=== PATIENT | female | born 2000 | race African-American/Black ===

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

== ENCOUNTER → 2020-07-28 | Outpatient (CLI) | payer BC ==
[~2020-07-28] MED LIST: IBUPROFEN800 MG PO; NAPROSYN500 MG PO; NORCO 5-325 TA1 EACH PO; PROVENTIL HFA6.7 GM INH; ZOFRAN4 MG PO; ZYRTEC10 MG PO
== END ==
LOC: RAD 10:25
DX: R05 Cough (principal)
CPT/HCPCS: 71046

== ENCOUNTER 2021-02-22 11:04 | Emergency (ER) | payer BC ==
[2021-02-22] MEDS ORDERED: NORFLEX 100 MG100 MG PO (12:25)
[2021-02-22] MEDS ORDERED: IBUPROFEN600 MG PO (12:25)
== END 2021-02-22 12:32 | disposition home or self-care (01) ==
LOC: ER1 11:04
DX: S43.402A Unspecified sprain of left shoulder joint, initial encounter (principal); X58.XXXA Exposure to other specified factors, initial encounter; Y93.9 Activity, unspecified; Y92.9 Unspecified place or not applicable; Y99.0 Civilian activity done for income or pay
CPT/HCPCS: 73030; 96372; 99283; J1100; J1885

== ENCOUNTER 2021-09-03 05:53 | Emergency (ER) | payer BC ==
[~2021-09-03 05:53] MED LIST changes: +IBUPROFEN600 MG PO; +NORFLEX 100 MG100 MG PO
[2021-09-03] MEDS ORDERED: IBUPROFEN600 MG PO (06:48)
== END 2021-09-03 07:06 | disposition home or self-care (01) ==
LOC: ER1 05:53
DX: S93.401A Sprain of unspecified ligament of right ankle, initial encounter (principal); W10.9XXA Fall (on) (from) unspecified stairs and steps, initial encounter
CPT/HCPCS: 73590; 73630; 99283